=== PATIENT | female | born 1985 | race African-American/Black ===

== ENCOUNTER 2017-01-12 10:08 | Emergency (ER) | payer OTHER ==
[2017-01-12 11:33] LABS: ASCORBIC ACID (UR NOT ORDER) NEG (NEG); BILIRUBIN, URINE NEGATIVE (NEG); ER URINALYSIS TAT 0 Hrs 00 Mins; KETONE, URINE NEGATIVE (NEG); LEUKOCYTE ESTERASE(NOT OR LARGE (NEG); NITRITE (URINE) NEG (NEG); WBC (NOT ORDERED) (RFLEX) 1 (0-5)
[2017-01-12 13:39] LABS: CHLAMYDIA TRACH PCR NOT DETECTED (NOT DETEC); GC PCR NOT DETECTED (NOT DETECT); SOURCE: FEMALE URINE
== END 2017-01-12 11:00 | disposition home or self-care (01) ==
LOC: ER 10:08
PROVIDERS: Physician Assistant Medical
DX: B37.3 Candidiasis of vulva and vagina (principal); L29.9 Pruritus, unspecified; F17.200 Nicotine dependence, unspecified, uncomplicated
CPT/HCPCS: 81001; 87086; 87491; 87591; 99283